=== PATIENT | male | born 1965 | race Caucasian/White ===

== ENCOUNTER 2021-12-26 06:18 | Emergency (ER) | payer BC, SELFPAY ==
[2021-12-26 06:19] VITALS: BP 193/113; PULSE 71; RESP 15; TEMP 36.6; O2SAT 97; BMI 37.5
--- NOTE | 2021-12-26 06:47 | EX.ED.DYSGE1 ---
HPI History of Present Illness Chief Complaint: Numb/Ting Informant: patient Onset/Context/Timing Onset: Yesterday Context: Gradual Onset Timing: Continuous Quality: weakness Location: left face Current Severity: Severe Maximum Severity: Severe Worsened by: nothing Relieved by: nothing Associated Symptoms Associated Symptoms: none Narrative Narrative: Patient presents with about 27 hours worth of paralysis on the left side of his face. Forehead is affected but not quite as bad as his lower face. No recent injury or illness that he knows of. No medication changes recently. No ear symptoms. No tick bites that he knows of. PFSH PFS Medical History GERD (gastroesophageal reflux disease) Hypertension Medical History no medical history Home Medications lisinopril 10 mg-hydrochlorothiazide 12.5 mg tablet 1 tab PO DAILY 12/26/21 [History Last Taken Unknown] omeprazole 40 mg capsule,delayed release 40 mg PO DAILY 12/26/21 [History Last Taken Unknown] prednisone 10 mg tablet 10 mg PO DAILY #44 TABLETS 12/26/21 [Rx Last Taken Unknown] valacyclovir 1 gram tablet 1,000 mg PO TID #21 tabs 12/26/21 [Rx Last Taken Unknown] Allergy/AdvReac Type Severity Reaction Status Date / Time No Known Allergies Allergy Verified 12/26/21 06:22 Surgical History no surgical history Social History Smoking Status: Never smoker ROS ROS ED Constitutional Constitutional ED: Denies chills or fever(s) Eyes Eyes: Denies change in vision or diplopia ENT ENT ED: Denies rhinorrhea or sore throat Cardiovascular Cardiovascular: Denies chest pain or palpitations Respiratory/Chest Respiratory/Chest: Denies cough or dyspnea Gastrointestinal Gastrointestinal: Denies abdominal pain, diarrhea, nausea or vomiting Genitourinary Genitourinary ED: Denies dysuria or hematuria Musculoskeletal Musculoskeletal: Denies back pain or neck pain Integumentary Denies abscess or rash Neurologic Neurologic: Reports as per HPI and weakness; Denies headache(s) or paresthesias Psychiatric Psychiatric: Denies anxiety or suicidal thoughts EXAM Physical Exam Const Vital Signs: 12/26/21 06:19 Temperature 97.8 F Temperature Source Oral Pulse Rate 71 Respiratory Rate 15 Blood Pressure 193/113 H Blood Pressure Mean 139 Pulse Ox 97 Oxygen Delivery Method Room Air Positive well nourished and well developed General Appearance ED: well developed and NAD HEENT Reports TM's clear and moist mucous membranes HEENT Narrative: Left facial paralysis, complete except for the forehead which is asymmetric with weakness on the left normocephalic and atraumatic Tympanic Membrane ED: Yes TM's clear bilateral (And external ears/EACs also normal.) Eyes PERRL and EOMs intact bilaterally Eyes Narrative: Ptosis left eye. Otherwise eyes are normal. Neck full ROM and supple Resp normal respiratory effort and clear to auscultation bilaterally Cardio regular rate, regular rhythm and no murmurs GI non-tender and non-distended Auscultation: normoactive bowel sounds Palpation: soft Back/Spine no CVA tenderness General Back: other FROM Extremity normal to inspection General Extremety ED: Negative for edema, pulses abnormal or tenderness General Extremity: Negative for edema or pulses abnormal Neuro oriented x3 and no sensory deficits noted Neuro Narrative: Weakness left side of face cutoff of the midline, paretic over the left forehead, unable to close eyes tightly on the left but is able to on the right. 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 Sensorium / Orientation: awake and alert Motor Exam: strength 5/5 throughout Psych mental status grossly normal Skin no rashes or lesions noted and no wounds MDM MDM MDM Narrative Medical decision making narrative: Consistent with Weaver's palsy. Steroids indicated now more so than antivirals but some studies that showed some possible improvement if viral in etiology. He does not have clear viral etiology, but there is no other obvious etiologies I am putting him on steroids just in case since there is really no downside. His initial blood pressure was high but on recheck without treatment it is in the 150s systolic. Discharge Plan Triage Chief Complaint: Numb/Ting ED Provider: Aristeo Peña Dx/Rx/DC Orders Clinical Impression: Weaver's palsy Instructions: ED Weaver's Palsy Prescriptions: New valacyclovir 1 gram tablet 1,000 mg PO TID Qty: 21 0RF prednisone 10 MG tablet 10 mg PO DAILY Qty: 44 0RF Rx Instructions: 6 po qd x 5 days, 3 po qd x 3 days, 2 po qd x 2 days, 1 po qd x 1 days No Action omeprazole 40 mg capsule,delayed release(DR/EC) 40 mg PO DAILY lisinopril-hydrochlorothiazide 10-12.5 mg tablet 1 tab PO DAILY Primary Care Provider: Deon Johns Referrals: Deon Johns DO [Primary Care Provider] - 1-2 Weeks Disposition Disposition: Home, Self Care
== END 2021-12-26 07:01 | disposition home or self-care (01) ==
PROVIDERS: Emergency Provider Emergency Medicine; PCP Student in an Organized Health Care Education/Training Program; Visit Provider Emergency Medicine
DX: G51.0 Bell's palsy (principal); I10 Essential (primary) hypertension; Z79.899 Other long term (current) drug therapy; Z79.52 Long term (current) use of systemic steroids
CPT/HCPCS: 99282